=== PATIENT | female | born 1945 | race Caucasian/White ===

== ENCOUNTER → 2020-05-14 07:51 | Outpatient (BNVA) | payer MEDICARE, OTHER, SELFPAY | PROVIDERS: PCP Internal Medicine; Referring Provider Internal Medicine; Visit Provider Specialist | DX: F32.9 Major depressive disorder, single episode, unspecified (principal); R51 Headache | CPT/HCPCS: 36415; 84443; 85025; 85651; 86140; 99204 ==

== ENCOUNTER 2020-05-14 09:21 | Outpatient (CLI) | payer MEDICARE, OTHER, SELFPAY ==
[2020-05-14 10:10] LABS: Basophils # 0.1 10^3/uL (0.0-0.1); Basophils % 0.8 %; Eosinophils # 0.3 10^3/uL (0.0-0.8); Eosinophils % 4.5 %; Hematocrit 46.9 % (37.0-47.0); Hemoglobin 15.5 g/dL (11.5-15.3); Lymphocytes # 1.9 10^3/uL (0.8-4.8); Lymphocytes % 31.8 %; Mean Corpuscular Hemoglobin 29.9 pg (28.0-34.0); Mean Corpuscular Volume 90.5 fL (81-99); Mean Platelet Volume 8.5 fL (7.4-10.4); Monocytes # 0.6 10^3/uL (0.2-0.9); Monocytes % 10.1 %; Neutrophils # 3.1 10^3/uL (1.8-7.7); Neutrophils % 52.6 %; Nucleated Red Blood Cells % 0 %; Platelet Count 265 10^3/cmm (130-400); Red Blood Count 5.18 10^6/uL (4.1-5.3); Red Cell Distribution Width 12.7 % (12.1-15.1); White Blood Count 5.9 10^3/uL (4.0-10.0)
[2020-05-14 10:30] LABS: C Reactive Protein 1.6 mg/L (0.0-4.9); Thyroid Stimulating Hormone 2.45 uIU/mL (0.27-4.20)
[2020-05-14 11:05] LABS: Erythrocyte Sedimentation Rate 4 mm/hr (0-15)
== END 2020-05-14 09:22 | disposition home or self-care (01) ==
LOC: LAB 09:25
PROVIDERS: PCP Internal Medicine; Visit Provider Specialist
DX: R51 Headache (principal)
CPT/HCPCS: 36415; 84443; 85025; 85651; 86140

== ENCOUNTER 2020-05-22 10:40 | Outpatient (CLI) | payer MEDICARE, OTHER, SELFPAY ==
--- NOTE | 2020-05-22 11:00 | MR_ITS ---
WS: [id number] MRI BRAIN WITHOUT CONTRAST HISTORY: R51 Headache COMPARISON: None available. TECHNIQUE: Diffusion imaging, multiplanar T1, T2 and FLAIR imaging obtained. No evidence for acute infarct or hemorrhage. Sanchez-white matter differentiation is normal. 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 There are a few scattered periventricular T2 and FLAIR signal hyperintensities throughout the white matter. Appropriate for the patient's age. No large territory infarcts. Mild atrophy. Ventricles and extra-axial spaces are normal. No inferior displacement of cerebellar tonsils. The sella turcica and pituitary gland are unremarkabl e. Posterior fossa is also unremarkable. Dural venous sinuses and [place] demonstrate no abnormality on this unenhanced studies. Paranasal sinuses: Clear. Mastoid air cells: Normal. Calvarium and scalp: Intact. MR/MR head wo con* [id number] IMPRESSION: 1. No acute infarct or mass. 2. Mild atrophy and mild chronic microvascular ischemic disease.
== END 2020-05-22 10:41 | disposition home or self-care (01) ==
LOC: RADSHAW 10:45
PROVIDERS: PCP Internal Medicine; Visit Provider Specialist
DX: R51 Headache (principal)
CPT/HCPCS: 70551

== ENCOUNTER → 2020-08-20 14:39 | Outpatient (BNVA) | payer MEDICARE, OTHER, SELFPAY | PROVIDERS: PCP Internal Medicine; Visit Provider Specialist | DX: F32.9 Major depressive disorder, single episode, unspecified (principal); G31.84 Mild cognitive impairment of uncertain or unknown etiology; G72.9 Myopathy, unspecified; M70.62 Trochanteric bursitis, left hip | CPT/HCPCS: 99214 ==